=== PATIENT | male | born 1995 | race Caucasian/White ===

== ENCOUNTER 2019-01-22 17:44 | Emergency (ER) | payer SELFPAY ==
[~2019-01-22] VITALS: Ht 175.3 cm; Wt 73.4 kg
[2019-01-22 17:48] VITALS: BP 130/76
[2019-01-22] MEDS ORDERED: VANCOMYCIN HCL 1 GM/D5% WATER 200 ML IV ONE (18:15)
[2019-01-22] MEDS ORDERED: PEG 3350/NA SULF,BICARB,CL/KCL 4000 ML SOLUTION PO ONE (18:15)
[2019-01-22] MEDS ORDERED: PIPERACILLIN/TAZO 3.375 GM/D5W 50 ML IV ONE (18:15)
== END 2019-01-22 19:01 | disposition left against medical advice (07) ==
LOC: EMS 17:46
DX: T40.1X1A Poisoning by heroin, accidental (unintentional), initial encounter (principal); T43.621A Poisoning by amphetamines, accidental (unintentional), initial encounter; L03.115 Cellulitis of right lower limb; F15.10 Other stimulant abuse, uncomplicated; F11.10 Opioid abuse, uncomplicated; F17.210 Nicotine dependence, cigarettes, uncomplicated; Y92.89 Other specified places as the place of occurrence of the external cause
CPT/HCPCS: 99283; 99406; J2543; J3370